=== PATIENT | male | born 1985 | race Caucasian/White ===

== ENCOUNTER 2017-10-12 15:09 | Inpatient (IN) | payer OTHER ==
--- NOTE | 2017-10-12 15:29 | EDM.PDOC ---
<Richardson Bauer - Last Filed: 10/12/17 19:05> ED HPI GENERAL MEDICAL PROBLEM - General Chief Complaint: Abdominal Pain Stated Complaint: POSS ISSUES WITH PANCREAS Time Seen by Provider: 10/12/17 15:29 - History of Present Illness INITIAL COMMENTS - FREE TEXT/NARRATIVE: 31-year-old male returns to the emergency room with what he thinks is a repeat bout of pancreatitis. Patient has a history of alcoholism. However the patient has been mostly dry for the last 4 months after rehabilitation. He had a couple of drinks on giving. Denies any other alcohol. Patient significant abdominal discomfort what makes this episode worse this is chest pain is much worse than prior episodes. Patient has had symptoms some significant nausea and vomiting with this. This seemed to start this morning. Chest Pain Score (Numeric/FACES): 7 Left Upper Abdominal Pain Score (Numeric/FACES): 10 - Related Data Allergies Allergy/AdvReac Type Severity Reaction Status Date / Time No Known Allergies Allergy Verified 10/12/17 15:15 Home Meds: Home Meds . [No Known Home Meds] 10/12/17 [History] ED ROS GENERAL - Review of Systems Review Of Systems: See Below Constitutional: Reports: No Symptoms HEENT: Reports: No Symptoms Respiratory: Reports: Pleuritic Chest Pain. Denies: No Symptoms, Shortness of Breath, Cough, Sputum Cardiovascular: Reports: Chest Pain. Denies: Dyspnea on Exertion, Edema, Palpitations, Syncope Endocrine: Reports: No Symptoms GI/Abdominal: Reports: Abdominal Pain, Nausea, Vomiting. Denies: Constipation, Diarrhea : Reports: No Symptoms Neurological: Reports: No Symptoms Psychiatric: Reports: No Symptoms ED EXAM, GI/ABD - Physical Exam Exam: See Below Exam Limited By: No Limitations General Appearance: Alert, Moderate Distress (From the discomfort) Head: Atraumatic, Normocephalic Neck: Normal Inspection, Supple, Non-Tender, Full Range of Motion. No: Lymphadenopathy (L), Lymphadenopathy (R) Respiratory/Chest: No Respiratory Distress, Lungs Clear, Normal Breath Sounds, Other (No palpatory chest wall discomfort) Cardiovascular: Regular Rate, Rhythm, No Edema, No Murmur GI/Abdominal Exam: Other (Active bowel sounds albeit somewhat diminished he has significant epigastric gastric and left upper quadrant discomfort he has no other significant abdominal discomfort noted) Back Exam: Normal Inspection. No: CVA Tenderness (L), CVA Tenderness (R) Extremities: Normal Inspection, No Pedal Edema Neurological: Alert, Oriented, Normal Cognition EKG INTERPRETATION EKG Date: 10/12/17 Rhythm: NSR [place]: Normal P-Wave: Present QRS: Normal ST-T: Normal QT: Normal Comparison: NA - No Prior EKG EKG Interpretation Comments: Probable normal EKG Course - Vital Signs Last Recorded V/S: Last Vital Signs Temp 35.6 C 10/12/17 15:15 Pulse 80 10/12/17 15:15 Resp 20 10/12/17 15:15 BP 146/98 H 10/12/17 15:15 Pulse Ox 100 10/12/17 15:15 - Orders/Labs/Meds Orders: Active Orders 24 hr Category Date Time Status EKG Documentation Completion [RC] STAT Care 10/12/17 15:15 Active Lactated Ringers [Ringers, Lactated] 1,000 ml Med 10/12/17 17:00 Active IV ASDIRECTED Medication Orders Lactated Ringer's (Ringers, Lactated) 1,000 mls @ 200 mls/hr IV ASDIRECTED ZAHRA Last Admin: 10/12/17 17:07 Dose: 200 mls/hr Labs: Laboratory Tests 10/12/17 10/12/17 10/12/17 Range/Units 15:25 15:25 15:25 WBC 16.09 H (4.23-9.07) K/mm3 RBC 5.68 (4.63-6.08) M/mm3 Hgb 18.1 H (13.7-17.5) gm/L Hct 52.2 H (40.1-51.0) % MCV 91.9 (79.0-92.2) fl MCH 31.9 (25.7-32.2) pg MCHC 34.7 (32.2-35.5) g/dl RDW Std Deviation 43.0 (35.1-43.9) fL Plt Count 231 (163-337) K/mm3 MPV 10.7 (9.4-12.3) fl Neutrophils % (Manual) 87 H (40-60) % Band Neutrophils % 0 (0-10) % Lymphocytes % (Manual) 11 L (20-40) % Atypical Lymphs % 0 % Monocytes % (Manual) 2 (2-10) % Eosinophils % (Manual) 0 L (0.8-7.0) % Basophils % (Manual) 0 L (0.2-1.2) Toxic Granulation 1+ slight Platelet Estimate Adequate Plt Morphology Comment Normal RBC Morph Comment Normal PT 10.5 (8.0-13.0) SECONDS INR 0.97 APTT (22-36) SECONDS D-Dimer, Quantitative 0.67 H (0.19-0.59) mg/L Sodium 140 (136-145) mEq/L Potassium 4.1 (3.5-5.1) mEq/L Chloride 102 (98-107) mEq/L Carbon Dioxide 19 L (21-32) mEq/L Anion Gap 23.1 H (5-15) BUN 17 (7-18) mg/dL Creatinine 1.2 (0.7-1.3) mg/dL Est Cr Clr Drug Dosing 97.00 mL/min Estimated GFR (MDRD) > 60 (>60) mL/min BUN/Creatinine Ratio 14.2 (14-18) Glucose 135 H (74-106) mg/dL Calcium 10.4 H (8.5-10.1) mg/dL Total Bilirubin 0.4 (0.2-1.0) mg/dL AST 107 H (15-37) U/L ALT 139 H (16-63) U/L Alkaline Phosphatase 62 (46-116) U/L Troponin I < 0.017 (0.00-0.056) ng/mL Total Protein 8.5 H (6.4-8.2) g/dl Albumin 4.5 (3.4-5.0) g/dl Globulin 4.0 gm/dL Albumin/Globulin Ratio 1.1 (1-2) Amylase 316 H (25-115) U/L Lipase 5089 H (73-393) U/L Ethyl Alcohol (0.00) gm% 10/12/17 10/12/17 Range/Units 15:25 15:25 WBC (4.23-9.07) K/mm3 RBC (4.63-6.08) M/mm3 Hgb (13.7-17.5) gm/L Hct (40.1-51.0) % MCV (79.0-92.2) fl MCH (25.7-32.2) pg MCHC (32.2-35.5) g/dl RDW Std Deviation (35.1-43.9) fL Plt Count (163-337) K/mm3 MPV (9.4-12.3) fl Neutrophils % (Manual) (40-60) % Band Neutrophils % (0-10) % Lymphocytes % (Manual) (20-40) % Atypical Lymphs % % Monocytes % (Manual) (2-10) % Eosinophils % (Manual) (0.8-7.0) % Basophils % (Manual) (0.2-1.2) Toxic Granulation Platelet Estimate Plt Morphology Comment RBC Morph Comment PT (8.0-13.0) SECONDS INR APTT 24 (22-36) SECONDS D-Dimer, Quantitative (0.19-0.59) mg/L Sodium (136-145) mEq/L Potassium (3.5-5.1) mEq/L Chloride (98-107) mEq/L Carbon Dioxide (21-32) mEq/L Anion Gap (5-15) BUN (7-18) mg/dL Creatinine (0.7-1.3) mg/dL Est Cr Clr Drug Dosing mL/min Estimated GFR (MDRD) (>60) mL/min BUN/Creatinine Ratio (14-18) Glucose (74-106) mg/dL Calcium (8.5-10.1) mg/dL Total Bilirubin (0.2-1.0) mg/dL AST (15-37) U/L ALT (16-63) U/L Alkaline Phosphatase (46-116) U/L Troponin I (0.00-0.056) ng/mL Total Protein (6.4-8.2) g/dl Albumin (3.4-5.0) g/dl Globulin gm/dL Albumin/Globulin Ratio (1-2) Amylase (25-115) U/L Lipase (73-393) U/L Ethyl Alcohol 0.02 (0.00) gm% Meds: Medications Generic Name Dose Route Start Last Admin Trade Name Freq PRN Reason Stop Dose Admin Lactated Ringer's 1,000 mls @ 200 mls/hr 10/12/17 17:00 10/12/17 17:07 Ringers, Lactated IV 200 mls/hr ASDIRECTED ZAHRA Administration Discontinued Medications Generic Name Dose Route Start Last Admin Trade Name Freq PRN Reason Stop Dose Admin Diphenhydramine HCl 25 mg 10/12/17 19:55 10/12/17 20:05 Benadryl IVPUSH 10/12/17 19:56 25 mg ONETIME ONE Administration Fentanyl 50 mcg 10/12/17 15:45 10/12/17 15:57 Sublimaze IVPUSH 10/12/17 15:46 50 mcg ONETIME ONE Administration Hydromorphone HCl 0.5 mg 10/12/17 17:13 10/12/17 17:20 Dilaudid IVPUSH 10/12/17 17:14 0.5 mg ONETIME ONE Administration Hydromorphone HCl Confirm 10/12/17 18:37 10/12/17 19:10 Dilaudid Administered 10/12/17 18:38 Not Given Dose 0.5 mg .ROUTE .STK-MED ONE Hydromorphone HCl 0.5 mg 10/12/17 18:30 10/12/17 18:33 Dilaudid IVPUSH 10/12/17 18:31 0.5 mg ONETIME ONE Administration Hydromorphone HCl 1 mg 10/12/17 19:55 10/12/17 20:09 Dilaudid IVPUSH 10/12/17 19:56 1 mg ONETIME ONE Administration Lactated Ringer's 1,000 mls @ 999 mls/hr 10/12/17 15:45 10/12/17 16:01 Ringers, Lactated IV 10/12/17 16:45 999 mls/hr .BOLUS ONE Administration Iopamidol 100 ml 10/12/17 18:15 10/12/17 18:43 Isovue-370 (76%) IVPUSH 10/12/17 18:16 100 ml ONETIME ONE Administration Metoclopramide HCl 10 mg 10/12/17 19:55 10/12/17 20:08 Reglan IVPUSH 10/12/17 19:56 10 mg ONETIME ONE Administration Ondansetron HCl 4 mg 10/12/17 15:45 10/12/17 16:00 Zofran IVPUSH 10/12/17 15:46 4 mg ONETIME ONE Administration Ondansetron HCl 4 mg 10/12/17 17:04 10/12/17 17:18 Zofran IVPUSH 10/12/17 17:05 4 mg ONETIME ONE Administration - Re-Assessments/Exams Free Text/Narrative Re-Assessment/Exam: 10/12/17 19:12 EKG nondiagnostic d-dimer is elevated lipase a little over [address] PE protocol and abdominal CT. Change of shift further care and disposition per Dr. Grey. Departure - Departure Disposition: Admitted As Inpatient 65 Clinical Impression: Volume depletion Pancreatitis Qualifiers: Chronicity: acute Pancreatitis type: alcohol induced Acute pancreatitis complication: no infection or necrosis Qualified Code(s): K85.20 - Alcohol induced acute pancreatitis without necrosis or infection - Discharge Information <Nba Grey - Last Filed: 10/12/17 20:36> Course - Re-Assessments/Exams Free Text/Narrative Re-Assessment/Exam: 10/12/17 19:57 CT angiogram of the chest is reported to be negative for pulmonary embolism by radiology. There was contrast within the esophagus compatible with GE reflux disorder. CT of the abdomen and pelvis reveals marked inflammatory changes around the pancreas compatible with acute pancreatitis no fluid collections are seen at this time. Liver shows fatty infiltration. The remainder of the solid organs and pelvis appeared to be within normal limits. There is a small fat-containing left inguinal hernia. Patient just vomited again. He's having increased abdominal pain. Last Zofran dose was 1717 hrs. Plan Reglan 10 mg IV with Benadryl 25 mg IV to prevent a dystonic reaction. Patient has had a total of 8 mg of Zofran IV. Pain medication will be Dilaudid 1 mg IV. Will speak with on-call hospice Dr. Castro with a view to admission in the hospital with diagnosis of acute pancreatitis. 10/12/17 20:[address] Castro and she has accepted care. Patient be admitted to the med surgery floor on telemetry. Noted potential risk of alcohol withdrawal as I believe the patient is not being truthful. He indicates his last drink was on ving which is 5 days ago. His blood alcohol is still 0.2 g percent at this time suggesting he has had alcohol within the last 8 hours. Departure - Departure Time of Disposition: 20:33 Condition: Serious
[2017-10-12] MEDS ORDERED: fentaNYL 100 MCG/2 ML SDV IVPUSH ONE (15:45)
[2017-10-12] MEDS ORDERED: Lactated Ringers 1,000 ML IV ONE (15:45)
[2017-10-12] MEDS ORDERED: Ondansetron 4 MG/2 ML SDV IVPUSH ONE ×2 (15:45→17:04)
[2017-10-12] MEDS: Lactated Ringers 1,000 ML IV SCH ×2 (17:07→22:23)
[2017-10-12] MEDS ORDERED: HYDROmorphone 0.5 MG/0.5 ML Syringe IVPUSH ONE ×2 (17:13→18:30)
[2017-10-12] MEDS ORDERED: Iopamidol 755 Mg/ML 100 ML Bottle IVPUSH ONE (18:15)
[2017-10-12] MEDS ORDERED: HYDROmorphone 0.5 MG/0.5 ML Syringe ONE (18:37)
--- NOTE | 2017-10-12 19:28 | CT ---
CT chest Technique: Multiple axial sections through the chest were obtained. Intravenous contrast was utilized. Study has been performed as a pulmonary angiogram protocol. Comparison: Prior chest x-ray of 06/25/12. Findings: Contrast noted within the distal esophagus compatible with gastroesophageal reflux. Pulmonary arteries are fairly well-opacified. No filling defects are seen to indicate pulmonary embolism. No pericardial thickening is seen. Mediastinum and hilar regions show no adenopathy or mass. Lungs are clear. No pleural effusions or pneumothorax is seen. Bone window settings shows scattered degenerative change within the spine. Impression: 1. No findings of pulmonary embolism. 2. Contrast within the esophagus compatible with gastroesophageal reflux. 3. No additional abnormality is seen on CT study of the chest. Diagnostic code #2
--- NOTE | 2017-10-12 19:31 | CT ---
CT abdomen and pelvis Technique: Multiple axial sections were obtained from above the dome of the diaphragm inferiorly to the pubic symphysis. Intravenous contrast was utilized. Oral contrast has also been given. Findings: Liver shows fatty infiltration. No focal abnormality is seen within the liver. Spleen appears within normal limits. Adrenal glands show no nodule. Kidneys show symmetric contrast enhancement without hydronephrosis or mass. Inflammatory change is identified around the pancreas. No focal fluid collections are seen at this time. Aorta shows no aneurysmal dilatation. No retroperitoneal adenopathy is seen. Appendix is seen which appears normal. No pelvic mass or adenopathy is seen. Small fat-containing left inguinal hernia is noted. Delayed images shows contrast within the distal ureters and within the bladder. Bone window settings were reviewed which appear within normal limits for the patient's age. Impression: 1. Inflammatory change around the pancreas compatible with pancreatitis. No fluid collections are seen at this time. 2. Liver shows fatty infiltration. 3. No additional abnormality is seen on CT study of the abdomen and pelvis. Diagnostic code #3
[2017-10-12] MEDS ORDERED: diphenhydrAMINE 50 MG/ML SDV IVPUSH ONE (19:55)
[2017-10-12] MEDS ORDERED: Metoclopramide 10 MG/2 ML SDV IVPUSH ONE (19:55)
[2017-10-12] MEDS ORDERED: HYDROmorphone 1 MG/ML Syringe IVPUSH ONE (19:55)
[2017-10-12] MEDS ORDERED: Ondansetron 4 MG/2 ML SDV IVPUSH PRN (20:42)
[2017-10-12] MEDS ORDERED: Temazepam 15 MG Cap PO PRN (20:45)
--- NOTE | 2017-10-12 20:47 | PCM.HP ---
H&P History of Present Illness - General Date of Service: 10/12/17 Admit Problem/Dx: Admission Diagnosis/Problem Admission Diagnosis/Problem Recurrent pancreatitis Source of Information: Patient, Provider History Limitations: Reports: No Limitations - History of Present Illness Initial Comments - Free Text/Narative: 31 year old male with a past medical history of alcohol dependence, he has been in inpatient treatment in the past. he reports having 2 glasses of wine on . However, he has a blood alcohol level of 0.02. He presents with abdominal pain; lipase level is greater than 5K. he has had N/V, no fever or chills. There has been no change in bowel habits. He denies symptoms; there is no CP, SOB, orthopnea, LOC. He will be admitted to [facility] [place]. Onset of Symptoms: Reports: Gradual Symptom Onset Date: 10/09/17 Duration of Symptoms: Reports: Day(s):, Getting Worse Location: Reports: Abdomen, Generalized Quality: Reports: Same as Previous Episode Severity: Moderate Improves with: Reports: Medication Worsens with: Reports: None Associated Symptoms: Reports: Loss of Appetite, Malaise, Nausea/Vomiting, Weakness Chest Pain Score (Numeric/FACES): 7 Left Upper Abdominal Pain Score (Numeric/FACES): 10 - Related Data Allergies/Adverse Reactions: Allergies Allergy/AdvReac Type Severity Reaction Status Date / Time No Known Allergies Allergy Verified 10/12/17 21:50 Home Medications: Home Meds Lisinopril 40 mg PO DAILY 10/12/17 [History] Pantoprazole Sodium [Protonix] 40 mg PO DAILY 10/12/17 [History] Past Medical History Cardiovascular History: Reports: Hypertension Gastrointestinal History: Reports: Pancreatitis Psychiatric History: Reports: Depression Social & Family History - Tobacco Use Smoking Status *Q: Current Every Day Smoker Years of Tobacco use: 10 Packs/Tins Daily: 0.5 - Recreational Drug Use Recreational Drug Use: No H&P Review of Systems - Review of Systems: Review Of Systems: See Below General: Reports: Malaise, Weakness, Decreased Appetite HEENT: Reports: No Symptoms Pulmonary: Reports: No Symptoms Cardiovascular: Reports: No Symptoms Gastrointestinal: Reports: Abdominal Pain, Decreased Appetite, Flatus Genitourinary: Reports: No Symptoms Musculoskeletal: Reports: No Symptoms Skin: Reports: No Symptoms Psychiatric: Reports: No Symptoms Neurological: Reports: No Symptoms Hematologic/Lymphatic: Reports: No Symptoms Immunologic: Reports: No Symptoms Exam - Exam Exam: See Below - Vital Signs Vital Signs: Last Vital Signs Temp 35.6 C 10/12/17 15:15 Pulse 80 10/12/17 15:15 Resp 20 10/12/17 15:15 BP 146/98 H 10/12/17 15:15 Pulse Ox 100 10/12/17 15:15 Weight: 99.79 kg - Exam General: Moderate Distress HEENT: Conjunctiva Clear, EOMI, Pupils Equal, Pupils Reactive, PERRLA Neck: Supple, Trachea Midline Lungs: Clear to Auscultation, Normal Respiratory Effort Cardiovascular: Regular Rate, Tachycardia GI/Abdominal Exam: Normal Bowel Sounds, No Organomegaly, Distended, Tender (Male) Exam: Deferred Rectal (Males) Exam: Deferred Back Exam: Normal Inspection Extremities: Normal Inspection, No Pedal Edema, Slow Capillary Refill Skin: Warm Neurological: Cranial Nerves Intact Neuro Extensive - Mental Status: Alert, Oriented x3 Neuro Extensive - Motor, Sensory, Reflexes: CN II-XII Intact Psychiatric: Alert, Anxious - Patient Data Result Diagrams: 10/14/17 05:19 10/14/17 05:19 *Q Meaningful Use (ADM) - VTE *Q VTE Criteria *Q: - Stroke *Q Stroke Criteria *Q: - AMI *Q AMI Criteria *Q: - Problem List (1) H/O ETOH abuse SNOMED Code(s): 652377924 ICD Code: Z87.898 - PERSONAL HISTORY OF OTHER SPECIFIED CONDITIONS Status: Acute Current Visit: Yes (2) Pancreatitis SNOMED Code(s): 15717377 ICD Code: K85.90 - ACUTE PANCREATITIS WITHOUT NECROSIS OR INFECTION, UNSP Status: Acute Current Visit: Yes Qualifiers: Chronicity: acute Pancreatitis type: alcohol induced Acute pancreatitis complication: no infection or necrosis Qualified Code(s): K85.20 - Alcohol induced acute pancreatitis without necrosis or infection (3) Volume depletion SNOMED Code(s): 37727565 ICD Code: E86.9 - VOLUME DEPLETION, UNSPECIFIED Status: Acute Current Visit: Yes Problem List Initiated/Reviewed/Updated: Yes Orders Last 24hrs: Active Orders 24 hr Category Date Time Status Admission Status [Patient Status] [ADT] Routine ADT 10/12/17 20:32 Active Consult to Civil Designer [CONS] Routine Cons 10/12/17 20:46 Ordered NPO [Nothing Per Oral Diet] [DIET] Diet 10/12/17 Dinner Ordered BMP [BASIC METABOLIC PANEL,BMP] [CHEM] DAILY Lab 10/13/17 05:00 Ordered BMP [BASIC METABOLIC PANEL,BMP] [CHEM] DAILY Lab 10/14/17 05:00 Ordered BMP [BASIC METABOLIC PANEL,BMP] [CHEM] DAILY Lab 10/15/17 05:00 Ordered BMP [BASIC METABOLIC PANEL,BMP] [CHEM] DAILY Lab 10/16/17 05:00 Ordered Blood Alcohol [ETHANOL BLOOD MEDICAL] [CHEM] Routine Lab 10/13/17 05:00 Ordered CBC WITH AUTO DIFF [HEME] DAILY Lab 10/12/17 05:00 Ordered CBC WITH AUTO DIFF [HEME] DAILY Lab 10/13/17 05:00 Ordered CBC WITH AUTO DIFF [HEME] DAILY Lab 10/14/17 05:00 Ordered CBC WITH AUTO DIFF [HEME] DAILY Lab 10/15/17 05:00 Ordered CRP [C-REACTIVE PROTEIN] [CHEM] DAILY Lab 10/13/17 05:00 Ordered CRP [C-REACTIVE PROTEIN] [CHEM] DAILY Lab 10/14/17 05:00 Ordered CRP [C-REACTIVE PROTEIN] [CHEM] DAILY Lab 10/15/17 05:00 Ordered CRP [C-REACTIVE PROTEIN] [CHEM] DAILY Lab 10/16/17 05:00 Ordered LIPASE [CHEM] DAILY Lab 10/13/17 05:00 Ordered LIPASE [CHEM] DAILY Lab 10/14/17 05:00 Ordered LIPASE [CHEM] DAILY Lab 10/15/17 05:00 Ordered LIPASE [CHEM] DAILY Lab 10/16/17 05:00 Ordered MAGNESIUM [CHEM] DAILY Lab 10/13/17 05:00 Ordered MAGNESIUM [CHEM] DAILY Lab 10/14/17 05:00 Ordered MAGNESIUM [CHEM] DAILY Lab 10/15/17 05:00 Ordered MAGNESIUM [CHEM] DAILY Lab 10/16/17 05:00 Ordered MAGNESIUM [CHEM] Stat Lab 10/12/17 20:33 Ordered HYDROmorphone [Dilaudid] Med 10/12/17 20:43 Ordered 1 mg IVPUSH Q4H PRN Metoclopramide [Reglan] Med 10/12/17 20:43 Ordered 5 mg IVPUSH Q4H PRN Ondansetron [Zofran] Med 10/12/17 20:42 Ordered 4 mg IVPUSH Q8H PRN Temazepam [Restoril] Med 10/12/17 20:45 Ordered 15 mg PO BEDTIME PRN Medication Orders Lactated Ringer's (Ringers, Lactated) 1,000 mls @ 150 mls/hr IV ASDIRECTED ZAHRA Last Admin: 10/12/17 17:07 Dose: 200 mls/hr Assessment/Plan Comment:: Impression: Alcohol pancreatitis History of alcohol dependence Query depression Plan: IVF Analgesics NPO except meds and ice chips Advance diet as tolerated DVT/GI prophylaxis SW/PT/OT
[2017-10-12] MEDS ORDERED: LORazepam 2 MG/ML MDV IVPUSH PRN (20:56)
[2017-10-12] MEDS: HYDROmorphone 1 MG/ML Syringe IVPUSH PRN (21:19)
[2017-10-12] MEDS: Lisinopril 20 MG Tab PO SCH (21:22)
[2017-10-12] MEDS ORDERED: Diphtheria,Pertussis(Acell),Tetanus Vaccine 0.5 ML SDV IM ONE (21:38)
[2017-10-12] MEDS ORDERED: Pneumococcal Polyvalent-23 Vaccine 0.5 ML SDV IM ONE (21:38)
[2017-10-12] MEDS: hydrALAZINE 20 MG/ML SDV IVPUSH PRN (21:59)
[2017-10-13] MEDS: HYDROmorphone 1 MG/ML Syringe IVPUSH PRN ×6 (00:59→21:12)
[2017-10-13] MEDS: Lactated Ringers 1,000 ML IV SCH ×3 (04:38→18:17)
[2017-10-13] MEDS: hydrALAZINE 20 MG/ML SDV IVPUSH PRN (04:41)
[2017-10-13] MEDS: Metoclopramide 10 MG/2 ML SDV IVPUSH PRN (04:42)
[2017-10-13] MEDS ORDERED: Magnesium Sulfate/Water 4 GM in Premix Bag 1 BAG IV ONE (07:29)
[2017-10-13] MEDS ORDERED: Potassium Chloride 20 MEQ Tab.ER PO ONE (07:33)
[2017-10-13] MEDS: Lisinopril 20 MG Tab PO SCH ×2 (09:14→21:05)
[2017-10-13] MEDS ORDERED: Potassium Chloride 10% 20 MEQ/15 ML Soln 30 ML UD Cup PO ONE (10:15)
--- NOTE | 2017-10-13 17:06 | PCM.PN ---
- General Info Date of Service: 10/13/17 Subjective Update: Patient has refused Chemical dependency consult; await psych consult. Functional Status: Reports: Pain Controlled, Tolerating Diet (npo), Ambulating, Urinating - Review of Systems General: Reports: No Symptoms HEENT: Reports: No Symptoms Pulmonary: Reports: No Symptoms Cardiovascular: Reports: No Symptoms Gastrointestinal: Reports: Abdominal Pain, Nausea Genitourinary: Reports: No Symptoms Musculoskeletal: Reports: No Symptoms Skin: Reports: No Symptoms Neurological: Reports: No Symptoms Psychiatric: Reports: No Symptoms - Patient Data Vitals - Most Recent: Last Vital Signs Temp 36.9 C 10/13/17 15:08 Pulse 80 10/13/17 15:08 Resp 19 10/13/17 15:08 BP 134/95 H 10/13/17 15:08 Pulse Ox 95 10/13/17 15:08 Weight - Most Recent: 100.652 kg I&O - Last 24 Hours: Intake & Output 10/13/17 10/13/17 10/13/17 06:59 14:59 22:59 Intake Total 1179 Output Total 400 Balance 779 Lab Results Last 24 Hours: Laboratory Results - last 24 hr 10/13/17 10/13/17 Range/Units 05:05 05:05 WBC 15.30 H (4.23-9.07) K/mm3 RBC 5.06 (4.63-6.08) M/mm3 Hgb 16.1 (13.7-17.5) gm/L Hct 47.4 (40.1-51.0) % MCV 93.7 H (79.0-92.2) fl MCH 31.8 (25.7-32.2) pg MCHC 34.0 (32.2-35.5) g/dl RDW Std Deviation 44.0 H (35.1-43.9) fL Plt Count 179 (163-337) K/mm3 MPV 11.0 (9.4-12.3) fl Neut % (Auto) 82.7 H (34.0-67.9) % Lymph % (Auto) 6.7 L (21.8-53.1) % Sherman % (Auto) 10.4 (5.3-12.2) % Eos % (Auto) 0.1 L (0.8-7.0) Baso % (Auto) 0.0 L (0.1-1.2) % Neut # (Auto) 12.66 H (1.78-5.38) K/mm3 Lymph # (Auto) 1.02 L (1.32-3.57) K/mm3 Sherman # (Auto) 1.59 H (0.30-0.82) K/mm3 Eos # (Auto) 0.01 L (0.04-0.54) K/mm3 Baso # (Auto) 0.00 L (0.01-0.08) K/mm3 Manual Slide Review Abnormal smear Sodium 136 (136-145) mEq/L Potassium 3.4 L (3.5-5.1) mEq/L Chloride 99 (98-107) mEq/L Carbon Dioxide 26 (21-32) mEq/L Anion Gap 14.4 (5-15) BUN 13 (7-18) mg/dL Creatinine 1.0 (0.7-1.3) mg/dL Est Cr Clr Drug Dosing 109.50 mL/min Estimated GFR (MDRD) > 60 (>60) mL/min BUN/Creatinine Ratio 13.0 L (14-18) Glucose 156 H (74-106) mg/dL Calcium 9.2 (8.5-10.1) mg/dL Magnesium 1.0 L (1.8-2.4) mg/dl C-Reactive Protein 1.9 H* (<1.0) mg/dL Lipase 6037 H (73-393) U/L Ethyl Alcohol 0.00 (0.00) gm% Med Orders - Current: Current Medications Hydralazine HCl (Apresoline) 20 mg IVPUSH Q6H PRN PRN Reason: Hypertension Last Admin: 10/13/17 04:41 Dose: 20 mg Hydromorphone HCl (Dilaudid) 1 mg IVPUSH Q3H PRN PRN Reason: PAIN Last Admin: 10/13/17 13:14 Dose: 1 mg Lactated Ringer's (Ringers, Lactated) 1,000 mls @ 150 mls/hr IV ASDIRECTED [facility] Last Admin: 10/13/17 11:20 Dose: 150 mls/hr Lisinopril (Prinivil) 20 mg PO BID [facility] Last Admin: 10/13/17 09:14 Dose: 20 mg Lorazepam (Ativan) 1 mg IVPUSH Q8H PRN PRN Reason: Anxiety Last Admin: 10/12/17 22:23 Dose: 1 mg Metoclopramide HCl (Reglan) 5 mg IVPUSH Q4H PRN PRN Reason: Nausea/Vomiting Last Admin: 10/13/17 04:42 Dose: 5 mg Ondansetron HCl (Zofran) 4 mg IVPUSH Q8H PRN PRN Reason: Nausea/Vomiting Temazepam (Restoril) 15 mg PO BEDTIME PRN PRN Reason: Insomnia Last Admin: 10/12/17 22:24 Dose: 15 mg Discontinued Medications Diphenhydramine HCl (Benadryl) 25 mg IVPUSH ONETIME ONE Stop: 10/12/17 19:56 Last Admin: 10/12/17 20:05 Dose: 25 mg Diphtheria/Tetanus/Acell Pertussis (Adacel) 0.5 ml IM .ONCE ONE Stop: 10/12/17 21:39 Fentanyl (Sublimaze) 50 mcg IVPUSH ONETIME ONE Stop: 10/12/17 15:46 Last Admin: 10/12/17 15:57 Dose: 50 mcg Hydromorphone HCl (Dilaudid) 0.5 mg IVPUSH ONETIME ONE Stop: 10/12/17 17:14 Last Admin: 10/12/17 17:20 Dose: 0.5 mg Hydromorphone HCl (Dilaudid) Confirm Administered Dose 0.5 mg .ROUTE .STK-MED ONE Stop: 10/12/17 18:38 Last Admin: 10/12/17 19:10 Dose: Not Given Hydromorphone HCl (Dilaudid) 0.5 mg IVPUSH ONETIME ONE Stop: 10/12/17 18:31 Last Admin: 10/12/17 18:33 Dose: 0.5 mg Hydromorphone HCl (Dilaudid) 1 mg IVPUSH ONETIME ONE Stop: 10/12/17 19:56 Last Admin: 10/12/17 20:09 Dose: 1 mg Hydromorphone HCl (Dilaudid) 1 mg IVPUSH Q4H PRN PRN Reason: Pain Last Admin: 10/13/17 09:14 Dose: 1 mg Lactated Ringer's (Ringers, Lactated) 1,000 mls @ 999 mls/hr IV .BOLUS ONE Stop: 10/12/17 16:45 Last Admin: 10/12/17 16:01 Dose: 999 mls/hr Magnesium Sulfate 4 gm/ Premix 100 mls @ 50 mls/hr IV ONETIME ONE Stop: 10/13/17 09:28 Last Admin: 10/13/17 07:37 Dose: 50 mls/hr Iopamidol (Isovue-370 (76%)) 100 ml IVPUSH ONETIME ONE Stop: 10/12/17 18:16 Last Admin: 10/12/17 18:43 Dose: 100 ml Metoclopramide HCl (Reglan) 10 mg IVPUSH ONETIME ONE Stop: 10/12/17 19:56 Last Admin: 10/12/17 20:08 Dose: 10 mg Ondansetron HCl (Zofran) 4 mg IVPUSH ONETIME ONE Stop: 10/12/17 15:46 Last Admin: 10/12/17 16:00 Dose: 4 mg Ondansetron HCl (Zofran) 4 mg IVPUSH ONETIME ONE Stop: 10/12/17 17:05 Last Admin: 10/12/17 17:18 Dose: 4 mg Pneumococcal Polyvalent Vaccine (Pneumovax 23) 0.5 ml IM .ONCE ONE Stop: 10/12/17 21:39 Potassium Chloride (Klor-Con M20) 20 meq PO ONETIME ONE Stop: 10/13/17 07:34 Last Admin: 10/13/17 07:45 Dose: 20 meq Potassium Chloride (Potassium Chloride) 40 meq PO ONETIME ONE Stop: 10/13/17 10:16 Last Admin: 10/13/17 11:19 Dose: 40 meq - Exam Quality Assessment: DVT Prophylaxis General: Alert, Oriented, No Acute Distress HEENT: Pupils Equal, Pupils Reactive, EOMI Neck: Supple, Trachea Midline, No JVD Lungs: Normal Respiratory Effort Cardiovascular: Regular Rate, Tachycardia GI/Abdominal Exam: Normal Bowel Sounds, Soft, No Organomegaly, No Distention, No Abnormal Bruit (Male) Exam: Deferred Back Exam: Normal Inspection Extremities: Normal Inspection Skin: Warm Neurological: No New Focal Deficit, Normal Speech Psy/Mental Status: Alert, Anxious - Problem List Review Problem List Initiated/Reviewed/Updated: Yes - My Orders Last 24 Hours: My Active Orders 10/12/17 20:42 Ondansetron [Zofran] 4 mg IVPUSH Q8H PRN 10/12/17 20:43 Metoclopramide [Reglan] 5 mg IVPUSH Q4H PRN 10/12/17 20:45 Temazepam [Restoril] 15 mg PO BEDTIME PRN 10/12/17 20:46 Consult to Veterans Employment Representative [CONS] Routine 10/12/17 20:55 hydrALAZINE [Apresoline] 20 mg IVPUSH Q6H PRN 10/12/17 20:56 LORazepam [Ativan] 1 mg IVPUSH Q8H PRN 10/12/17 21:00 Lisinopril [Prinivil] 20 mg PO BID 10/12/17 21:38 CIWAA Assessment [RC] Q4HR Vaccines to be Administered [RC] 1100 10/12/17 22:51 Resuscitation Status Routine 10/12/17 Dinner NPO [Nothing Per Oral Diet] [DIET] 10/13/17 07:22 Up With Assistance [RC] ASDIRECTED 10/13/17 09:55 Notify Provider Consults [RC] ASDIRECTED Consult for Substance Abuse [CONS] Routine 10/13/17 13:00 Consult to Physician [CONS] Routine 10/13/17 13:03 HYDROmorphone [Dilaudid] 1 mg IVPUSH Q3H PRN 10/14/17 05:00 BMP [BASIC METABOLIC PANEL,BMP] [CHEM] DAILY CBC WITH AUTO DIFF [HEME] DAILY CRP [C-REACTIVE PROTEIN] [CHEM] DAILY LIPASE [CHEM] DAILY MAGNESIUM [CHEM] DAILY 10/15/17 05:00 BMP [BASIC METABOLIC PANEL,BMP] [CHEM] DAILY CBC WITH AUTO DIFF [HEME] DAILY CRP [C-REACTIVE PROTEIN] [CHEM] DAILY LIPASE [CHEM] DAILY MAGNESIUM [CHEM] DAILY 10/16/17 05:00 BMP [BASIC METABOLIC PANEL,BMP] [CHEM] DAILY CRP [C-REACTIVE PROTEIN] [CHEM] DAILY LIPASE [CHEM] DAILY MAGNESIUM [CHEM] DAILY - Plan Plan:: Impression: Alcohol pancreatitis, day 1; lipase has increased Abdominal pain, moderate History of alcohol dependence Query depression Plan: IVF Analgesics, increase as needed. NPO except meds and ice chips, continue Advance diet as tolerated, 24-48 will attempt to advance DVT/GI prophylaxis SW/PT/OT
--- NOTE | 2017-10-13 19:58 | CONS ---
CONSULTING PHYSICIAN: Molina Pollack LAC DATE OF CONSULTATION: 10/13/2017 TIME: 7:10 p.m. The patient is a 31-year-old male who was admitted to [facility] on 10/12/2017 with pancreatitis. An alcohol and drug consultation was requested by his medical treatment team. SOURCE OF INFORMATION: Hospital records, background research, and prescription drug monitoring report. An alcohol and drug consultation was attempted on 10/13/2017. However, after discussion about why his medical treatment team thought it was necessary for an alcohol and drug evaluation, the patient reported that he did not think an evaluation was necessary and refused to participate. We talked briefly subsequent to his decision not to have the evaluation but about the medical consequences of continued drinking, and the patient verbalized that he had a problem with drinking and now he does not. The patient was asked again if he wanted to refuse the alcohol and drug evaluation and he affirmed. The patient meets ASAM criteria for a level 3.1 clinically managed low intensity residential treatment as he appears to be in late stage III alcohol use disorder, severe, based on continued drinking despite causing serious negative consequences to life organ systems, denial of his addictions and its implications, minimizing his use, and refusal for any professional substance abuse intervention. The patient recently participated in residential treatment at [facility] in [place] about 2 months ago and yet continues to drink. Unfortunately, the patient is refusing to participate in an alcohol and drug evaluation and is not open to or allowing any professional interaction/intervention. The patient's autonomy will be respected. Hopefully, should the patient present subsequent to this visit with further alcohol-related medical complications, he will be ready to accept professional intervention. Dr. Castro and Lupe Blake, [facility], were consulted regarding the outcome of this evaluation. Without the patient's consent and cooperation, we are unable to assist this patient with any intervention strategies at this time. SHARLENE /[id number]
[2017-10-13] MEDS ORDERED: Temazepam 30 MG Cap PO PRN (20:33)
[2017-10-13] MEDS ORDERED: chlordiazePOXIDE 25 MG Cap PO PRN (21:00)
[2017-10-13] MEDS: cloNIDine 0.1 MG Tab PO SCH (21:06)
[2017-10-14] MEDS ORDERED: Calcium Carbonate 500 MG Tab.Chew PO PRN (00:49)
[2017-10-14] MEDS: Lactated Ringers 1,000 ML IV SCH ×4 (00:59→21:58)
[2017-10-14] MEDS: HYDROmorphone 1 MG/ML Syringe IVPUSH PRN ×6 (01:01→21:55)
[2017-10-14] MEDS: hydrALAZINE 20 MG/ML SDV IVPUSH PRN (01:02)
[2017-10-14] MEDS: cloNIDine 0.1 MG Tab PO SCH ×3 (08:11→21:53)
[2017-10-14] MEDS: Lisinopril 20 MG Tab PO SCH ×2 (08:11→21:54)
--- NOTE | 2017-10-14 15:11 | PCM.PN ---
- General Info Date of Service: 10/14/17 Functional Status: Reports: Tolerating Diet (NPO), Ambulating, Urinating - Review of Systems General: Reports: Malaise HEENT: Reports: No Symptoms Pulmonary: Reports: No Symptoms Cardiovascular: Reports: No Symptoms Gastrointestinal: Reports: Abdominal Pain Genitourinary: Reports: No Symptoms Musculoskeletal: Reports: No Symptoms Skin: Reports: No Symptoms Neurological: Reports: No Symptoms Psychiatric: Reports: No Symptoms - Patient Data Vitals - Most Recent: Last Vital Signs Temp 37.3 C 10/14/17 07:41 Pulse 70 10/14/17 07:41 Resp 17 10/14/17 07:41 BP 141/90 H 10/14/17 14:54 Pulse Ox 95 10/14/17 07:41 Weight - Most Recent: 100.652 kg I&O - Last 24 Hours: Intake & Output 10/14/17 10/14/17 10/14/17 06:59 14:59 22:59 Intake Total 1544 Output Total 2000 Balance -456 Lab Results Last 24 Hours: Laboratory Results - last 24 hr 10/14/17 10/14/17 Range/Units 05:19 05:19 WBC 9.28 H (4.23-9.07) K/mm3 RBC 4.71 (4.63-6.08) M/mm3 Hgb 15.0 (13.7-17.5) gm/L Hct 44.9 (40.1-51.0) % MCV 95.3 H (79.0-92.2) fl MCH 31.8 (25.7-32.2) pg MCHC 33.4 (32.2-35.5) g/dl RDW Std Deviation 43.7 (35.1-43.9) fL Plt Count 141 L (163-337) K/mm3 MPV 11.0 (9.4-12.3) fl Neut % (Auto) 71.9 H (34.0-67.9) % Lymph % (Auto) 12.5 L (21.8-53.1) % Spencer % (Auto) 12.8 H (5.3-12.2) % Eos % (Auto) 2.6 (0.8-7.0) Baso % (Auto) 0.0 L (0.1-1.2) % Neut # (Auto) 6.67 H (1.78-5.38) K/mm3 Lymph # (Auto) 1.16 L (1.32-3.57) K/mm3 Spencer # (Auto) 1.19 H (0.30-0.82) K/mm3 Eos # (Auto) 0.24 (0.04-0.54) K/mm3 Baso # (Auto) 0.00 L (0.01-0.08) K/mm3 Sodium 135 L (136-145) mEq/L Potassium 3.7 (3.5-5.1) mEq/L Chloride 99 (98-107) mEq/L Carbon Dioxide 25 (21-32) mEq/L Anion Gap 14.7 (5-15) BUN 7 (7-18) mg/dL Creatinine 0.8 (0.7-1.3) mg/dL Est Cr Clr Drug Dosing 136.88 mL/min Estimated GFR (MDRD) > 60 (>60) mL/min BUN/Creatinine Ratio 8.8 L (14-18) Glucose 118 H (74-106) mg/dL Calcium 8.6 (8.5-10.1) mg/dL Magnesium 1.9 (1.8-2.4) mg/dl C-Reactive Protein 7.3 H* (<1.0) mg/dL Lipase 1476 H (73-393) U/L Med Orders - Current: Current Medications Calcium Carbonate/Glycine (Tums) 500 mg PO QID PRN PRN Reason: Indigestion Last Admin: 10/14/17 01:00 Dose: 500 mg Chlordiazepoxide HCl (Librium) 25 mg PO BID [facility] Clonidine HCl (Catapres) 0.1 mg PO TID [facility] Last Admin: 10/14/17 14:54 Dose: 0.1 mg Hydralazine HCl (Apresoline) 20 mg IVPUSH Q6H PRN PRN Reason: Hypertension Last Admin: 10/14/17 01:02 Dose: 20 mg Hydromorphone HCl (Dilaudid) 1 mg IVPUSH Q3H PRN PRN Reason: PAIN Last Admin: 10/14/17 13:51 Dose: 1 mg Lactated Ringer's (Ringers, Lactated) 1,000 mls @ 150 mls/hr IV ASDIRECTED [facility] Last Admin: 10/14/17 14:52 Dose: 150 mls/hr Lisinopril (Prinivil) 20 mg PO BID [facility] Last Admin: 10/14/17 08:11 Dose: 20 mg Lorazepam (Ativan) 1 mg IVPUSH Q8H PRN PRN Reason: Anxiety Last Admin: 10/12/17 22:23 Dose: 1 mg Metoclopramide HCl (Reglan) 5 mg IVPUSH Q4H PRN PRN Reason: Nausea/Vomiting Last Admin: 10/13/17 04:42 Dose: 5 mg Ondansetron HCl (Zofran) 4 mg IVPUSH Q8H PRN PRN Reason: Nausea/Vomiting Temazepam (Restoril) 30 mg PO BEDTIME PRN PRN Reason: Insomnia Discontinued Medications Chlordiazepoxide HCl (Librium) 25 mg PO BID PRN PRN Reason: withdrawl symptoms Diphenhydramine HCl (Benadryl) 25 mg IVPUSH ONETIME ONE Stop: 10/12/17 19:56 Last Admin: 10/12/17 20:05 Dose: 25 mg Diphtheria/Tetanus/Acell Pertussis (Adacel) 0.5 ml IM .ONCE ONE Stop: 10/12/17 21:39 Fentanyl (Sublimaze) 50 mcg IVPUSH ONETIME ONE Stop: 10/12/17 15:46 Last Admin: 10/12/17 15:57 Dose: 50 mcg Hydromorphone HCl (Dilaudid) 0.5 mg IVPUSH ONETIME ONE Stop: 10/12/17 17:14 Last Admin: 10/12/17 17:20 Dose: 0.5 mg Hydromorphone HCl (Dilaudid) Confirm Administered Dose 0.5 mg .ROUTE .STK-MED ONE Stop: 10/12/17 18:38 Last Admin: 10/12/17 19:10 Dose: Not Given Hydromorphone HCl (Dilaudid) 0.5 mg IVPUSH ONETIME ONE Stop: 10/12/17 18:31 Last Admin: 10/12/17 18:33 Dose: 0.5 mg Hydromorphone HCl (Dilaudid) 1 mg IVPUSH ONETIME ONE Stop: 10/12/17 19:56 Last Admin: 10/12/17 20:09 Dose: 1 mg Hydromorphone HCl (Dilaudid) 1 mg IVPUSH Q4H PRN PRN Reason: Pain Last Admin: 10/13/17 09:14 Dose: 1 mg Lactated Ringer's (Ringers, Lactated) 1,000 mls @ 999 mls/hr IV .BOLUS ONE Stop: 10/12/17 16:45 Last Admin: 10/12/17 16:01 Dose: 999 mls/hr Magnesium Sulfate 4 gm/ Premix 100 mls @ 50 mls/hr IV ONETIME ONE Stop: 10/13/17 09:28 Last Admin: 10/13/17 07:37 Dose: 50 mls/hr Iopamidol (Isovue-370 (76%)) 100 ml IVPUSH ONETIME ONE Stop: 10/12/17 18:16 Last Admin: 10/12/17 18:43 Dose: 100 ml Metoclopramide HCl (Reglan) 10 mg IVPUSH ONETIME ONE Stop: 10/12/17 19:56 Last Admin: 10/12/17 20:08 Dose: 10 mg Ondansetron HCl (Zofran) 4 mg IVPUSH ONETIME ONE Stop: 10/12/17 15:46 Last Admin: 10/12/17 16:00 Dose: 4 mg Ondansetron HCl (Zofran) 4 mg IVPUSH ONETIME ONE Stop: 10/12/17 17:05 Last Admin: 10/12/17 17:18 Dose: 4 mg Pneumococcal Polyvalent Vaccine (Pneumovax 23) 0.5 ml IM .ONCE ONE Stop: 10/12/17 21:39 Potassium Chloride (Klor-Con M20) 20 meq PO ONETIME ONE Stop: 10/13/17 07:34 Last Admin: 10/13/17 07:45 Dose: 20 meq Potassium Chloride (Potassium Chloride) 40 meq PO ONETIME ONE Stop: 10/13/17 10:16 Last Admin: 10/13/17 11:19 Dose: 40 meq Temazepam (Restoril) 15 mg PO BEDTIME PRN PRN Reason: Insomnia Last Admin: 10/12/17 22:24 Dose: 15 mg - Exam Quality Assessment: DVT Prophylaxis General: Alert, Oriented, Cooperative HEENT: Pupils Equal, Pupils Reactive, EOMI Neck: Supple, Trachea Midline, No JVD Lungs: Clear to Auscultation, Normal Respiratory Effort Cardiovascular: Regular Rate, Regular Rhythm GI/Abdominal Exam: Normal Bowel Sounds, Soft, Non-Tender, No Organomegaly, No Distention (Male) Exam: Deferred Back Exam: Normal Inspection Extremities: Normal Inspection Skin: Warm Neurological: No New Focal Deficit Psy/Mental Status: Alert, Anxious - Problem List Review Problem List Initiated/Reviewed/Updated: Yes - My Orders Last 24 Hours: My Active Orders 10/13/17 20:33 Temazepam [Restoril] 30 mg PO BEDTIME PRN 10/13/17 21:00 cloNIDine [Catapres] 0.1 mg PO TID 10/14/17 00:49 Calcium Carbonate [Tums] 500 mg PO QID PRN 10/14/17 21:00 chlordiazePOXIDE [Librium] 25 mg PO BID 10/15/17 05:00 BMP [BASIC METABOLIC PANEL,BMP] [CHEM] DAILY CBC WITH AUTO DIFF [HEME] DAILY CRP [C-REACTIVE PROTEIN] [CHEM] DAILY LIPASE [CHEM] DAILY MAGNESIUM [CHEM] DAILY 10/15/17 Breakfast Clear Liquid Diet [DIET] 10/16/17 05:00 BMP [BASIC METABOLIC PANEL,BMP] [CHEM] DAILY CRP [C-REACTIVE PROTEIN] [CHEM] DAILY LIPASE [CHEM] DAILY MAGNESIUM [CHEM] DAILY - Plan Plan:: Impression: Alcohol pancreatitis, day 2; lipase dropped to 1K Abdominal pain, improving History of alcohol dependence Query depression Plan: IVF Analgesics, increase as needed. NPO except meds and ice chips, continue Advance diet as tolerated, 24 hours will attempt to advance DVT/GI prophylaxis SW/PT/OT
[2017-10-14] MEDS: Metoclopramide 10 MG/2 ML SDV IVPUSH PRN (17:36)
[2017-10-14] MEDS: chlordiazePOXIDE 25 MG Cap PO SCH (21:53)
[2017-10-15] MEDS: HYDROmorphone 1 MG/ML Syringe IVPUSH PRN ×3 (02:07→10:15)
[2017-10-15] MEDS: Lactated Ringers 1,000 ML IV SCH ×3 (04:47→17:30)
[2017-10-15] MEDS: chlordiazePOXIDE 25 MG Cap PO SCH ×2 (10:12→21:18)
[2017-10-15] MEDS: Lisinopril 20 MG Tab PO SCH ×2 (10:12→21:19)
[2017-10-15] MEDS: cloNIDine 0.1 MG Tab PO SCH ×3 (10:15→21:19)
[2017-10-15] MEDS ORDERED: HYDROmorphone 1 MG/ML Syringe IVPUSH PRN (16:00)
--- NOTE | 2017-10-15 16:50 | PCM.PN ---
- General Info Date of Service: 10/15/17 Functional Status: Reports: Tolerating Diet (clear liquids), Ambulating, Urinating - Review of Systems General: Reports: No Symptoms HEENT: Reports: No Symptoms Pulmonary: Reports: No Symptoms Cardiovascular: Reports: No Symptoms Gastrointestinal: Reports: Abdominal Pain Genitourinary: Reports: No Symptoms Musculoskeletal: Reports: No Symptoms Skin: Reports: No Symptoms Neurological: Reports: No Symptoms Psychiatric: Reports: No Symptoms - Patient Data Vitals - Most Recent: Last Vital Signs Temp 36.5 C 10/15/17 16:09 Pulse 58 L 10/15/17 16:09 Resp 18 10/15/17 16:09 BP 133/78 10/15/17 16:09 Pulse Ox 98 10/15/17 16:09 Weight - Most Recent: 99.836 kg I&O - Last 24 Hours: Intake & Output 10/15/17 10/15/17 10/15/17 06:59 14:59 22:59 Intake Total 1436 Balance 1436 Lab Results Last 24 Hours: Laboratory Results - last 24 hr 10/15/17 10/15/17 Range/Units 05:48 05:48 WBC 7.95 (4.23-9.07) K/mm3 RBC 4.84 (4.63-6.08) M/mm3 Hgb 15.2 (13.7-17.5) gm/L Hct 46.3 (40.1-51.0) % MCV 95.7 H (79.0-92.2) fl MCH 31.4 (25.7-32.2) pg MCHC 32.8 (32.2-35.5) g/dl RDW Std Deviation 43.3 (35.1-43.9) fL Plt Count 149 L (163-337) K/mm3 MPV 10.8 (9.4-12.3) fl Neut % (Auto) 56.6 (34.0-67.9) % Lymph % (Auto) 25.8 (21.8-53.1) % Glynn % (Auto) 12.5 H (5.3-12.2) % Eos % (Auto) 4.7 (0.8-7.0) Baso % (Auto) 0.1 (0.1-1.2) % Neut # (Auto) 4.51 (1.78-5.38) K/mm3 Lymph # (Auto) 2.05 (1.32-3.57) K/mm3 Glynn # (Auto) 0.99 H (0.30-0.82) K/mm3 Eos # (Auto) 0.37 (0.04-0.54) K/mm3 Baso # (Auto) 0.01 (0.01-0.08) K/mm3 Sodium 137 (136-145) mEq/L Potassium 4.3 (3.5-5.1) mEq/L Chloride 101 (98-107) mEq/L Carbon Dioxide 24 (21-32) mEq/L Anion Gap 16.3 H (5-15) BUN 11 (7-18) mg/dL Creatinine 0.9 (0.7-1.3) mg/dL Est Cr Clr Drug Dosing 121.97 mL/min Estimated GFR (MDRD) > 60 (>60) mL/min BUN/Creatinine Ratio 12.2 L (14-18) Glucose 95 (74-106) mg/dL Calcium 9.2 (8.5-10.1) mg/dL Magnesium 2.1 (1.8-2.4) mg/dl C-Reactive Protein 5.4 H* (<1.0) mg/dL Lipase 721 H (73-393) U/L Med Orders - Current: Current Medications Calcium Carbonate/Glycine (Tums) 500 mg PO QID PRN PRN Reason: Indigestion Last Admin: 10/14/17 01:00 Dose: 500 mg Chlordiazepoxide HCl (Librium) 25 mg PO BID [facility] Last Admin: 10/15/17 10:12 Dose: 25 mg Clonidine HCl (Catapres) 0.1 mg PO TID [facility] Last Admin: 10/15/17 14:25 Dose: 0.1 mg Hydralazine HCl (Apresoline) 20 mg IVPUSH Q6H PRN PRN Reason: Hypertension Last Admin: 10/14/17 01:02 Dose: 20 mg Hydromorphone HCl (Dilaudid) 1 mg IVPUSH Q6H PRN PRN Reason: PAIN Last Admin: 10/15/17 16:14 Dose: 1 mg Lactated Ringer's (Ringers, Lactated) 1,000 mls @ 150 mls/hr IV ASDIRECTED [facility] Last Admin: 10/15/17 11:20 Dose: 150 mls/hr Lisinopril (Prinivil) 20 mg PO BID [facility] Last Admin: 10/15/17 10:12 Dose: 20 mg Lorazepam (Ativan) 1 mg IVPUSH Q8H PRN PRN Reason: Anxiety Last Admin: 10/12/17 22:23 Dose: 1 mg Metoclopramide HCl (Reglan) 5 mg IVPUSH Q4H PRN PRN Reason: Nausea/Vomiting Last Admin: 10/14/17 17:36 Dose: 5 mg Ondansetron HCl (Zofran) 4 mg IVPUSH Q8H PRN PRN Reason: Nausea/Vomiting Temazepam (Restoril) 30 mg PO BEDTIME PRN PRN Reason: Insomnia Discontinued Medications Chlordiazepoxide HCl (Librium) 25 mg PO BID PRN PRN Reason: withdrawl symptoms Diphenhydramine HCl (Benadryl) 25 mg IVPUSH ONETIME ONE Stop: 10/12/17 19:56 Last Admin: 10/12/17 20:05 Dose: 25 mg Diphtheria/Tetanus/Acell Pertussis (Adacel) 0.5 ml IM .ONCE ONE Stop: 10/12/17 21:39 Fentanyl (Sublimaze) 50 mcg IVPUSH ONETIME ONE Stop: 10/12/17 15:46 Last Admin: 10/12/17 15:57 Dose: 50 mcg Hydromorphone HCl (Dilaudid) 0.5 mg IVPUSH ONETIME ONE Stop: 10/12/17 17:14 Last Admin: 10/12/17 17:20 Dose: 0.5 mg Hydromorphone HCl (Dilaudid) Confirm Administered Dose 0.5 mg .ROUTE .STK-MED ONE Stop: 10/12/17 18:38 Last Admin: 10/12/17 19:10 Dose: Not Given Hydromorphone HCl (Dilaudid) 0.5 mg IVPUSH ONETIME ONE Stop: 10/12/17 18:31 Last Admin: 10/12/17 18:33 Dose: 0.5 mg Hydromorphone HCl (Dilaudid) 1 mg IVPUSH ONETIME ONE Stop: 10/12/17 19:56 Last Admin: 10/12/17 20:09 Dose: 1 mg Hydromorphone HCl (Dilaudid) 1 mg IVPUSH Q4H PRN PRN Reason: Pain Last Admin: 10/13/17 09:14 Dose: 1 mg Hydromorphone HCl (Dilaudid) 1 mg IVPUSH Q3H PRN PRN Reason: PAIN Last Admin: 10/15/17 10:15 Dose: 1 mg Lactated Ringer's (Ringers, Lactated) 1,000 mls @ 999 mls/hr IV .BOLUS ONE Stop: 10/12/17 16:45 Last Admin: 10/12/17 16:01 Dose: 999 mls/hr Magnesium Sulfate 4 gm/ Premix 100 mls @ 50 mls/hr IV ONETIME ONE Stop: 10/13/17 09:28 Last Admin: 10/13/17 07:37 Dose: 50 mls/hr Iopamidol (Isovue-370 (76%)) 100 ml IVPUSH ONETIME ONE Stop: 10/12/17 18:16 Last Admin: 10/12/17 18:43 Dose: 100 ml Metoclopramide HCl (Reglan) 10 mg IVPUSH ONETIME ONE Stop: 10/12/17 19:56 Last Admin: 10/12/17 20:08 Dose: 10 mg Ondansetron HCl (Zofran) 4 mg IVPUSH ONETIME ONE Stop: 10/12/17 15:46 Last Admin: 10/12/17 16:00 Dose: 4 mg Ondansetron HCl (Zofran) 4 mg IVPUSH ONETIME ONE Stop: 10/12/17 17:05 Last Admin: 10/12/17 17:18 Dose: 4 mg Pneumococcal Polyvalent Vaccine (Pneumovax 23) 0.5 ml IM .ONCE ONE Stop: 10/12/17 21:39 Potassium Chloride (Klor-Con M20) 20 meq PO ONETIME ONE Stop: 10/13/17 07:34 Last Admin: 10/13/17 07:45 Dose: 20 meq Potassium Chloride (Potassium Chloride) 40 meq PO ONETIME ONE Stop: 10/13/17 10:16 Last Admin: 10/13/17 11:19 Dose: 40 meq Temazepam (Restoril) 15 mg PO BEDTIME PRN PRN Reason: Insomnia Last Admin: 10/12/17 22:24 Dose: 15 mg - Exam Quality Assessment: DVT Prophylaxis General: Alert, Oriented, Cooperative, No Acute Distress HEENT: Pupils Equal, Pupils Reactive, EOMI Neck: Supple, Trachea Midline, No JVD Lungs: Normal Respiratory Effort Cardiovascular: Regular Rate, Regular Rhythm GI/Abdominal Exam: Normal Bowel Sounds, Soft, Non-Tender, No Organomegaly, No Distention (Male) Exam: Deferred Back Exam: Normal Inspection Extremities: Normal Inspection, Normal Range of Motion, Non-Tender Skin: Warm Neurological: No New Focal Deficit, Normal Gait, Normal Speech Psy/Mental Status: Alert, Normal Affect, Normal Mood - Problem List Review Problem List Initiated/Reviewed/Updated: Yes - My Orders Last 24 Hours: My Active Orders 10/14/17 21:00 chlordiazePOXIDE [Librium] 25 mg PO BID 10/15/17 16:00 HYDROmorphone [Dilaudid] 1 mg IVPUSH Q6H PRN 10/15/17 Breakfast Clear Liquid Diet [DIET] 10/16/17 05:00 BMP [BASIC METABOLIC PANEL,BMP] [CHEM] DAILY CRP [C-REACTIVE PROTEIN] [CHEM] DAILY LIPASE [CHEM] DAILY MAGNESIUM [CHEM] DAILY - Plan Plan:: Impression: Alcohol pancreatitis, day 3; lipase dropped to <1K Abdominal pain, improving however increased after eating History of alcohol dependence Query depression Plan: IVF Analgesics, frequency changed to Q 6H as needed. Clear liquids Advance diet as tolerated, 24 hours will attempt to advance DVT/GI prophylaxis SW/PT/OT
[2017-10-15] MEDS: Ketorolac 30 MG/ML SDV IVPUSH PRN (21:29)
[2017-10-15] MEDS: Acetaminophen/HYDROcodone 325-5 MG Tab PO PRN (21:29)
[2017-10-16] MEDS: Lactated Ringers 1,000 ML IV SCH ×4 (00:24→21:59)
[2017-10-16] MEDS: Acetaminophen/HYDROcodone 325-5 MG Tab PO PRN ×4 (02:24→21:57)
[2017-10-16] MEDS: cloNIDine 0.1 MG Tab PO SCH ×4 (08:18→21:56)
[2017-10-16] MEDS: chlordiazePOXIDE 25 MG Cap PO SCH ×2 (08:19→21:36)
[2017-10-16] MEDS: Lisinopril 20 MG Tab PO SCH ×2 (08:19→21:35)
[2017-10-16] MEDS: Ketorolac 30 MG/ML SDV IVPUSH PRN ×2 (08:48→22:04)
--- NOTE | 2017-10-16 15:56 | PCM.PN ---
- General Info Date of Service: 10/16/17 Functional Status: Reports: Tolerating Diet, Ambulating, Urinating - Review of Systems General: Reports: No Symptoms HEENT: Reports: No Symptoms Pulmonary: Reports: No Symptoms Cardiovascular: Reports: No Symptoms Gastrointestinal: Reports: No Symptoms Genitourinary: Reports: No Symptoms Musculoskeletal: Reports: No Symptoms Skin: Reports: No Symptoms Neurological: Reports: No Symptoms Psychiatric: Reports: No Symptoms - Patient Data Vitals - Most Recent: Last Vital Signs Temp 36.6 C 10/16/17 11:58 Pulse 56 L 10/16/17 15:08 Resp 18 10/16/17 11:58 BP 133/75 10/16/17 15:08 Pulse Ox 100 10/16/17 15:08 Weight - Most Recent: 99.745 kg I&O - Last 24 Hours: Intake & Output 10/16/17 10/16/17 10/16/17 06:59 14:59 22:59 Intake Total 2575 320 Balance 2575 320 Lab Results Last 24 Hours: Laboratory Results - last 24 hr 10/16/17 Range/Units 05:17 Sodium 139 (136-145) mEq/L Potassium 3.9 (3.5-5.1) mEq/L Chloride 106 (98-107) mEq/L Carbon Dioxide 23 (21-32) mEq/L Anion Gap 13.9 (5-15) BUN 12 (7-18) mg/dL Creatinine 0.9 (0.7-1.3) mg/dL Est Cr Clr Drug Dosing 121.97 mL/min Estimated GFR (MDRD) > 60 (>60) mL/min BUN/Creatinine Ratio 13.3 L (14-18) Glucose 93 (74-106) mg/dL Calcium 8.4 L (8.5-10.1) mg/dL Magnesium 2.1 (1.8-2.4) mg/dl C-Reactive Protein 2.9 H* (<1.0) mg/dL Lipase 411 H (73-393) U/L Med Orders - Current: Current Medications Hydrocodone Bitart/Acetaminophen ([place] 325-5 Mg) 1 tab PO Q4H PRN PRN Reason: Pain Last Admin: 10/16/17 08:18 Dose: 1 tab Calcium Carbonate/Glycine (Tums) 500 mg PO QID PRN PRN Reason: Indigestion Last Admin: 11/29/17 01:00 Dose: 500 mg Chlordiazepoxide HCl (Librium) 25 mg PO BID [facility] Last Admin: 10/16/17 08:19 Dose: 25 mg Clonidine HCl (Catapres) 0.1 mg PO TID [facility] Last Admin: 10/16/17 15:08 Dose: 0.1 mg Hydralazine HCl (Apresoline) 20 mg IVPUSH Q6H PRN PRN Reason: Hypertension Last Admin: 10/14/17 01:02 Dose: 20 mg Hydromorphone HCl (Dilaudid) 1 mg IVPUSH Q6H PRN PRN Reason: PAIN Last Admin: 10/15/17 16:14 Dose: 1 mg Lactated Ringer's (Ringers, Lactated) 1,000 mls @ 150 mls/hr IV ASDIRECTED [facility] Last Admin: 10/16/17 15:06 Dose: 150 mls/hr Ketorolac Tromethamine (Toradol) 30 mg IVPUSH Q6H PRN PRN Reason: Pain Stop: 10/20/17 21:12 Last Admin: 10/16/17 08:48 Dose: 30 mg Lisinopril (Prinivil) 20 mg PO BID [facility] Last Admin: 10/16/17 08:19 Dose: 20 mg Lorazepam (Ativan) 1 mg IVPUSH Q8H PRN PRN Reason: Anxiety Last Admin: 10/12/17 22:23 Dose: 1 mg Metoclopramide HCl (Reglan) 5 mg IVPUSH Q4H PRN PRN Reason: Nausea/Vomiting Last Admin: 10/14/17 17:36 Dose: 5 mg Ondansetron HCl (Zofran) 4 mg IVPUSH Q8H PRN PRN Reason: Nausea/Vomiting Temazepam (Restoril) 30 mg PO BEDTIME PRN PRN Reason: Insomnia Discontinued Medications Chlordiazepoxide HCl (Librium) 25 mg PO BID PRN PRN Reason: withdrawl symptoms Diphenhydramine HCl (Benadryl) 25 mg IVPUSH ONETIME ONE Stop: 10/12/17 19:56 Last Admin: 10/12/17 20:05 Dose: 25 mg Diphtheria/Tetanus/Acell Pertussis (Adacel) 0.5 ml IM .ONCE ONE Stop: 10/12/17 21:39 Fentanyl (Sublimaze) 50 mcg IVPUSH ONETIME ONE Stop: 10/12/17 15:46 Last Admin: 10/12/17 15:57 Dose: 50 mcg Hydromorphone HCl (Dilaudid) 0.5 mg IVPUSH ONETIME ONE Stop: 10/12/17 17:14 Last Admin: 10/12/17 17:20 Dose: 0.5 mg Hydromorphone HCl (Dilaudid) Confirm Administered Dose 0.5 mg .ROUTE .STK-MED ONE Stop: 10/12/17 18:38 Last Admin: 10/12/17 19:10 Dose: Not Given Hydromorphone HCl (Dilaudid) 0.5 mg IVPUSH ONETIME ONE Stop: 10/12/17 18:31 Last Admin: 10/12/17 18:33 Dose: 0.5 mg Hydromorphone HCl (Dilaudid) 1 mg IVPUSH ONETIME ONE Stop: 10/12/17 19:56 Last Admin: 10/12/17 20:09 Dose: 1 mg Hydromorphone HCl (Dilaudid) 1 mg IVPUSH Q4H PRN PRN Reason: Pain Last Admin: 10/13/17 09:14 Dose: 1 mg Hydromorphone HCl (Dilaudid) 1 mg IVPUSH Q3H PRN PRN Reason: PAIN Last Admin: 10/15/17 10:15 Dose: 1 mg Lactated Ringer's (Ringers, Lactated) 1,000 mls @ 999 mls/hr IV .BOLUS ONE Stop: 10/12/17 16:45 Last Admin: 10/12/17 16:01 Dose: 999 mls/hr Magnesium Sulfate 4 gm/ Premix 100 mls @ 50 mls/hr IV ONETIME ONE Stop: 10/13/17 09:28 Last Admin: 10/13/17 07:37 Dose: 50 mls/hr Iopamidol (Isovue-370 (76%)) 100 ml IVPUSH ONETIME ONE Stop: 10/12/17 18:16 Last Admin: 10/12/17 18:43 Dose: 100 ml Metoclopramide HCl (Reglan) 10 mg IVPUSH ONETIME ONE Stop: 10/12/17 19:56 Last Admin: 10/12/17 20:08 Dose: 10 mg Ondansetron HCl (Zofran) 4 mg IVPUSH ONETIME ONE Stop: 10/12/17 15:46 Last Admin: 10/12/17 16:00 Dose: 4 mg Ondansetron HCl (Zofran) 4 mg IVPUSH ONETIME ONE Stop: 10/12/17 17:05 Last Admin: 10/12/17 17:18 Dose: 4 mg Pneumococcal Polyvalent Vaccine (Pneumovax 23) 0.5 ml IM .ONCE ONE Stop: 10/12/17 21:39 Potassium Chloride (Klor-Con M20) 20 meq PO ONETIME ONE Stop: 10/13/17 07:34 Last Admin: 10/13/17 07:45 Dose: 20 meq Potassium Chloride (Potassium Chloride) 40 meq PO ONETIME ONE Stop: 10/13/17 10:16 Last Admin: 10/13/17 11:19 Dose: 40 meq Temazepam (Restoril) 15 mg PO BEDTIME PRN PRN Reason: Insomnia Last Admin: 10/12/17 22:24 Dose: 15 mg - Exam Quality Assessment: DVT Prophylaxis General: Alert, Oriented, Cooperative HEENT: Pupils Equal, Pupils Reactive, EOMI Neck: Supple, Trachea Midline, No JVD Lungs: Normal Respiratory Effort Cardiovascular: Regular Rate, Regular Rhythm GI/Abdominal Exam: Normal Bowel Sounds, Soft, Non-Tender, No Organomegaly, No Distention (Male) Exam: Deferred Back Exam: Normal Inspection Extremities: Normal Inspection, No Pedal Edema Skin: Warm Neurological: No New Focal Deficit, Normal Gait, Normal Speech Psy/Mental Status: Alert, Normal Affect, Normal Mood - Problem List Review Problem List Initiated/Reviewed/Updated: Yes - My Orders Last 24 Hours: My Active Orders 10/15/17 16:00 HYDROmorphone [Dilaudid] 1 mg IVPUSH Q6H PRN 10/16/17 Lunch Full Liquid Diet [DIET] - Plan Plan:: Impression: Alcohol pancreatitis, day 4; lipase dropped to <1K Abdominal pain, decreased History of alcohol dependence Query depression Plan: IVF Analgesics, frequency changed to Q 6H as needed. Clear liquids Advance diet as tolerated, 24 hours will attempt to advance DVT/GI prophylaxis SW/PT/OT *LOS>96 hours had abdominal pain without eating; advance diet as tolerated.
[2017-10-17] MEDS: Lactated Ringers 1,000 ML IV SCH (05:03)
[2017-10-17] MEDS: Acetaminophen/HYDROcodone 325-5 MG Tab PO PRN (05:17)
[2017-10-17] MEDS: cloNIDine 0.1 MG Tab PO SCH (08:29)
[2017-10-17] MEDS: chlordiazePOXIDE 25 MG Cap PO SCH (08:30)
[2017-10-17] MEDS: Lisinopril 20 MG Tab PO SCH (08:31)
--- NOTE | 2017-10-17 10:17 | PCM.DCSUM1 ---
Discharge Summary - Hospital Course Free Text/Narrative:: 31 year old male presented with abdominal pain associated with N/V was found to have acute pancreatitis; ie, alcohol pancreatitis. He has gone to in patient treatment in the past. On this admission his lipase was monitored, it gradually dropped and he resumed a regular diet. He decline a consult with the substance abuse counselor during this admission for alcohol dependence. he had reported that he had two glasses of wine on giving however he presented over 72 hours after the wine was consumed with a NAYELI 0.02. A CIWA protocol was followed for alcohol withdrawal, he was medicated as needed. He received narcotics for his abdominal pain, but will only be discharged on his home meds as previously prescribed. Primary Dx Acute alcoholic pancreatitis History of ETOH dependence Hypertension Query depression Condition Good Diet Regular Activity As tolerated Meds See Home med list Follow up PCP 1-2 weeks. Instructions DO NOT DRINK ALCOHOL - Discharge Data Discharge Date: 10/17/17 Discharge Disposition: Home, Self-Care 01 Condition: Good - Patient Summary/Data Consults: Consultations 10/12/17 20:46 Consult to Home Health Travel Ot [CONS] Routine 10/13/17 09:55 Consult for Substance Abuse [CONS] Routine 10/13/17 13:00 Consult to Physician [CONS] Routine Recommended Follow-up Testing/Procedures: PCP for post hospital admission. Substance Abuse counselor or AA for ETOH dependence Psychiatry for anxiety/depression evaluation as appropriate - Patient Instructions Diet: Regular Diet as Tolerated Activity: As Tolerated Driving: May Drive Today Showering/Bathing: May Shower Notify Provider of: Fever, Nausea and/or Vomiting - Discharge Plan Home Medications: Home Meds Lisinopril 40 mg PO DAILY 10/12/17 [History] Pantoprazole Sodium [Protonix] 40 mg PO DAILY 10/12/17 [History] Patient Handouts: Acute Pancreatitis, [id number], Smoking Cessation, Tips for Success, Alcohol Withdrawal, [id number] Referrals: PCP,None [Primary Care Provider] - - Discharge Summary/Plan Comment DC Time >30 min.: No - General Info Date of Service: 10/12/17 Functional Status: Reports: Pain Controlled, Tolerating Diet, Ambulating, Urinating - Review of Systems General: Reports: No Symptoms HEENT: Reports: No Symptoms Pulmonary: Reports: No Symptoms Cardiovascular: Reports: No Symptoms Gastrointestinal: Reports: No Symptoms Genitourinary: Reports: No Symptoms Musculoskeletal: Reports: No Symptoms Skin: Reports: No Symptoms Neurological: Reports: No Symptoms Psychiatric: Reports: No Symptoms - Patient Data Vitals - Most Recent: Last Vital Signs Temp 36.4 C 10/17/17 08:29 Pulse 57 L 10/17/17 08:29 Resp 14 10/17/17 08:29 BP 128/86 10/17/17 08:31 Pulse Ox 98 10/17/17 08:29 Weight - Most Recent: 99.609 kg I&O - Last 24 hours: Intake & Output 10/16/17 10/17/17 10/17/17 22:59 06:59 14:59 Intake Total 2240 1950 Output Total 1600 Balance 640 1950 Lab Results - Last 24 hrs: Laboratory Results - last 24 hr 10/17/17 10/17/17 Range/Units 05:11 05:11 WBC 5.62 (4.23-9.07) K/mm3 RBC 4.61 L (4.63-6.08) M/mm3 Hgb 14.6 (13.7-17.5) gm/L Hct 42.8 (40.1-51.0) % MCV 92.8 H (79.0-92.2) fl MCH 31.7 (25.7-32.2) pg MCHC 34.1 (32.2-35.5) g/dl RDW Std Deviation 41.7 (35.1-43.9) fL Plt Count 174 (163-337) K/mm3 MPV 10.8 (9.4-12.3) fl Neut % (Auto) 50.5 (34.0-67.9) % Lymph % (Auto) 34.3 (21.8-53.1) % [place]cl[place] % (Auto) 9.1 (5.3-12.2) % Eos % (Auto) 5.5 (0.8-7.0) Baso % (Auto) 0.2 (0.1-1.2) % Neut # (Auto) 2.84 (1.78-5.38) K/mm3 Lymph # (Auto) 1.93 (1.32-3.57) K/mm3 [place] # (Auto) 0.51 (0.30-0.82) K/mm3 Eos # (Auto) 0.31 (0.04-0.54) K/mm3 Baso # (Auto) 0.01 (0.01-0.08) K/mm3 Sodium 139 (136-145) mEq/L Potassium 3.9 (3.5-5.1) mEq/L Chloride 107 (98-107) mEq/L Carbon Dioxide 23 (21-32) mEq/L Anion Gap 12.9 (5-15) BUN 11 (7-18) mg/dL Creatinine 0.9 (0.7-1.3) mg/dL Est Cr Clr Drug Dosing 121.97 mL/min Estimated GFR (MDRD) > 60 (>60) mL/min BUN/Creatinine Ratio 12.2 L (14-18) Glucose 92 (74-106) mg/dL Calcium 8.5 (8.5-10.1) mg/dL C-Reactive Protein < 0.2 (<1.0) mg/dL Lipase 190 (73-393) U/L Med Orders - Current: Current Medications Hydrocodone Bitart/Acetaminophen ([place] 325-5 Mg) 1 tab PO Q4H PRN PRN Reason: Pain Last Admin: 10/17/17 05:17 Dose: 1 tab Calcium Carbonate/Glycine (Tums) 500 mg PO QID PRN PRN Reason: Indigestion Last Admin: 10/14/17 01:00 Dose: 500 mg Chlordiazepoxide HCl (Librium) 25 mg PO BID [facility] Last Admin: 10/17/17 08:30 Dose: 25 mg Clonidine HCl (Catapres) 0.1 mg PO TID [facility] Last Admin: 10/17/17 08:29 Dose: 0.1 mg Hydralazine HCl (Apresoline) 20 mg IVPUSH Q6H PRN PRN Reason: Hypertension Last Admin: 10/14/17 01:02 Dose: 20 mg Hydromorphone HCl (Dilaudid) 1 mg IVPUSH Q6H PRN PRN Reason: PAIN Last Admin: 10/15/17 16:14 Dose: 1 mg Lactated Ringer's (Ringers, Lactated) 1,000 mls @ 150 mls/hr IV ASDIRECTED [facility] Last Admin: 10/17/17 05:03 Dose: 150 mls/hr Ketorolac Tromethamine (Toradol) 30 mg IVPUSH Q6H PRN PRN Reason: Pain Stop: 10/20/17 21:12 Last Admin: 10/16/17 22:04 Dose: 30 mg Lisinopril (Prinivil) 20 mg PO BID [facility] Last Admin: 10/17/17 08:31 Dose: 20 mg Lorazepam (Ativan) 1 mg IVPUSH Q8H PRN PRN Reason: Anxiety Last Admin: 10/12/17 22:23 Dose: 1 mg Metoclopramide HCl (Reglan) 5 mg IVPUSH Q4H PRN PRN Reason: Nausea/Vomiting Last Admin: 10/14/17 17:36 Dose: 5 mg Ondansetron HCl (Zofran) 4 mg IVPUSH Q8H PRN PRN Reason: Nausea/Vomiting Temazepam (Restoril) 30 mg PO BEDTIME PRN PRN Reason: Insomnia Discontinued Medications Chlordiazepoxide HCl (Librium) 25 mg PO BID PRN PRN Reason: withdrawl symptoms Diphenhydramine HCl (Benadryl) 25 mg IVPUSH ONETIME ONE Stop: 10/12/17 19:56 Last Admin: 10/12/17 20:05 Dose: 25 mg Diphtheria/Tetanus/Acell Pertussis (Adacel) 0.5 ml IM .ONCE ONE Stop: 10/12/17 21:39 Fentanyl (Sublimaze) 50 mcg IVPUSH ONETIME ONE Stop: 10/12/17 15:46 Last Admin: 10/12/17 15:57 Dose: 50 mcg Hydromorphone HCl (Dilaudid) 0.5 mg IVPUSH ONETIME ONE Stop: 10/12/17 17:14 Last Admin: 10/12/17 17:20 Dose: 0.5 mg Hydromorphone HCl (Dilaudid) Confirm Administered Dose 0.5 mg .ROUTE .STK-MED ONE Stop: 10/12/17 18:38 Last Admin: 10/12/17 19:10 Dose: Not Given Hydromorphone HCl (Dilaudid) 0.5 mg IVPUSH ONETIME ONE Stop: 10/12/17 18:31 Last Admin: 10/12/17 18:33 Dose: 0.5 mg Hydromorphone HCl (Dilaudid) 1 mg IVPUSH ONETIME ONE Stop: 10/12/17 19:56 Last Admin: 10/12/17 20:09 Dose: 1 mg Hydromorphone HCl (Dilaudid) 1 mg IVPUSH Q4H PRN PRN Reason: Pain Last Admin: 10/13/17 09:14 Dose: 1 mg Hydromorphone HCl (Dilaudid) 1 mg IVPUSH Q3H PRN PRN Reason: PAIN Last Admin: 10/15/17 10:15 Dose: 1 mg Lactated Ringer's (Ringers, Lactated) 1,000 mls @ 999 mls/hr IV .BOLUS ONE Stop: 10/12/17 16:45 Last Admin: 10/12/17 16:01 Dose: 999 mls/hr Magnesium Sulfate 4 gm/ Premix 100 mls @ 50 mls/hr IV ONETIME ONE Stop: 10/13/17 09:28 Last Admin: 10/13/17 07:37 Dose: 50 mls/hr Iopamidol (Isovue-370 (76%)) 100 ml IVPUSH ONETIME ONE Stop: 10/12/17 18:16 Last Admin: 10/12/17 18:43 Dose: 100 ml Metoclopramide HCl (Reglan) 10 mg IVPUSH ONETIME ONE Stop: 10/12/17 19:56 Last Admin: 10/12/17 20:08 Dose: 10 mg Ondansetron HCl (Zofran) 4 mg IVPUSH ONETIME ONE Stop: 10/12/17 15:46 Last Admin: 10/12/17 16:00 Dose: 4 mg Ondansetron HCl (Zofran) 4 mg IVPUSH ONETIME ONE Stop: 10/12/17 17:05 Last Admin: 10/12/17 17:18 Dose: 4 mg Pneumococcal Polyvalent Vaccine (Pneumovax 23) 0.5 ml IM .ONCE ONE Stop: 10/12/17 21:39 Potassium Chloride (Klor-Con M20) 20 meq PO ONETIME ONE Stop: 10/13/17 07:34 Last Admin: 10/13/17 07:45 Dose: 20 meq Potassium Chloride (Potassium Chloride) 40 meq PO ONETIME ONE Stop: 10/13/17 10:16 Last Admin: 10/13/17 11:19 Dose: 40 meq Temazepam (Restoril) 15 mg PO BEDTIME PRN PRN Reason: Insomnia Last Admin: 10/12/17 22:24 Dose: 15 mg - Exam Quality Assessment: Reports: DVT Prophylaxis General: Reports: Alert, Oriented, Cooperative, No Acute Distress HEENT: Reports: Pupils Equal, Pupils Reactive, EOMI Neck: Reports: Supple, Trachea Midline Lungs: Reports: Clear to Auscultation, Normal Respiratory Effort Cardiovascular: Reports: Regular Rate, Regular Rhythm GI/Abdominal Exam: Normal Bowel Sounds, Soft, Non-Tender, No Organomegaly, No Distention (Male) Exam: Deferred Rectal (Males) Exam: Deferred Back Exam: Reports: Normal Inspection Extremities: Normal Inspection, Normal Range of Motion, Non-Tender, No Pedal Edema, Normal Capillary Refill Skin: Reports: Warm Neurological: Reports: No New Focal Deficit, Normal Gait, Normal Speech Psy/Mental Status: Reports: Alert, Depressed *Q Meaningful Use (DIS) - VTE *Q VTE Criteria *Q: - Stroke *Q Stroke Criteria *Q: - AMI *Q AMI Criteria *Q:
[2017-10-17] MEDS ORDERED: Pneumococcal Polyvalent-23 Vaccine 0.5 ML SDV IM ONE (11:42)
[2017-10-17] MEDS ORDERED: Diphtheria,Pertussis(Acell),Tetanus Vaccine 0.5 ML SDV IM ONE (11:43)
== END 2017-10-17 12:10 | disposition home or self-care (01) | DRG 440 ==
LOC: JD.ED 15:09 → JD.MS 20:14
PROVIDERS: ADMIT Internal Medicine Cardiovascular Disease; ATTEND Internal Medicine Cardiovascular Disease
DX: K85.20 Alcohol induced acute pancreatitis without necrosis or infection (principal); E86.9 Volume depletion, unspecified; K21.9 Gastro-esophageal reflux disease without esophagitis; I10 Essential (primary) hypertension; F17.210 Nicotine dependence, cigarettes, uncomplicated; F10.20 Alcohol dependence, uncomplicated; Y90.1 Blood alcohol level of 20-39 mg/100 ml; Z79.899 Other long term (current) drug therapy
CPT/HCPCS: 36415; 71275; 71275-26; 74177; 74177-26; 80048; 80053; 82150; 83690; 83735; 84484; 85025; 85379; 85610; 85730; 86140; 90471; 90715; 90732; 93005; 96361; 96374; 96375; 96376; 99284; 99285-25; A9270-GY; G0009; G0480; J0360; J1170; J1200; J1885; J2060; J2405; J2765; J3010; J3475; J7120; Q9967